=== PATIENT | female | born 1995 | race Caucasian/White ===

== ENCOUNTER → 2017-02-06 | Outpatient (REF) | payer OTHER | LOC: M SFHCLERA 20:46 | PROVIDERS: ATTEND Nurse Practitioner Family | DX: Z20.2 Contact with and (suspected) exposure to infections with a predominantly sexual mode of transmission (principal) ==

== ENCOUNTER 2021-08-30 14:41 | Inpatient (IN) | payer OTHER ==
[~2021-08-30] VITALS: Ht 157.5 cm; Wt 75.4 kg
[2021-08-30 15:06] VITALS: BP 158/87
[2021-08-30] MEDS ORDERED: TUMS500C PO (15:10)
[2021-08-30] MEDS ORDERED: ACET-907 PO (15:10)
[2021-08-30 15:16] VITALS: BP 141/83
[2021-08-30 15:26] VITALS: BP 137/80
[2021-08-30 15:57] LABS: APPEARANCE, URINE TURBID (CLEAR); BACTERIA, URINE AUTO 2+ (NEGATIVE); BILIRUBIN, URINE AUTO NEGATIVE (NEGATIVE); BLOOD, URINE BLOOD 1+ (NEGATIVE); COLOR, URINE YELLOW (YELLOW); GLUCOSE, URINE (UA) AUTO NEGATIVE (NEGATIVE); KETONE, URINE AUTO TRACE mg/dL (NEGATIVE); LEUKOCYTE ESTERASE, URINE AUTO 3+ (NEGATIVE); MUCUS, URINE SMALL (NEGATIVE); NITRITE, URINE AUTO POSITIVE (NEGATIVE); PROTEIN, URINE AUTO 2+ mg/dL (NEGATIVE); RBC, URINE AUTO 4 /HPF (0-3); SPECIFIC GRAVITY URINE AUTO 1.014 (1.002-1.035); SQUAMOUS EPITHELIAL CELL UR AU 4 /HPF (0-6); UROBILINOGEN, URINE AUTO 0.2 mg/dL (0.0-2.0); WBC, URINE AUTO TNTC /HPF (0-3)
[2021-08-30 16:20] LABS: ALT/SGPT 17 U/L (12-78); BILIRUBIN,TOTAL 0.3 MG/DL (0.2-1.0); CREATININE FOR GFR 0.54 MG/DL (0.55-1.30); GLOMERULAR FILTRATION RATE > 60.0 (>60); LDH LACTATE DEHYDROGENASE 218 U/L (84-246); URIC ACID 2.5 MG/DL (2.6-6.0)
[2021-08-30] MEDS: ACETAMINOPHEN 500 MG TAB PO PRN ×2 (16:41→22:42)
[2021-08-30] MEDS: NS 1,000 ML IV SCH ×2 (16:41→20:58)
[2021-08-30] MEDS ORDERED: NS 500 ML IV SCH (17:10)
[2021-08-30] MEDS ORDERED: NS 500 ML IV ONE (17:15)
[2021-08-30] MEDS: cefTRIAXone SOD 1 GM in D5W MINI-BAG PLUS 50 ML IV SCH (17:32)
[2021-08-30 18:17] VITALS: BP 128/59
[2021-08-30 20:37] VITALS: BP 132/74
[2021-08-31] VITALS: BP 117/59
[2021-08-31 04:00] VITALS: BP 103/55
[2021-08-31] MEDS: NS 1,000 ML IV SCH ×2 (04:46→12:03)
[2021-08-31] MEDS: ACETAMINOPHEN 500 MG TAB PO PRN ×2 (04:46→14:15)
[2021-08-31 08:38] VITALS: BP 110/57
[2021-08-31 08:51] LABS: HEMATOCRIT 30.9 % (36.0-47.0); HEMOGLOBIN 10.1 g/dl (12.0-15.5); MEAN CORPUSCULAR HEMOGLOBIN 28.6 pg (27.0-33.0); MEAN CORPUSCULAR HGB CONC 32.7 g/dl (32.0-36.5); MEAN CORPUSCULAR VOLUME 87.5 fl (80.0-96.0); PLATELET COUNT, AUTOMATED 254 10^3/uL (150-450); RED BLOOD COUNT 3.53 10^6/uL (4.00-5.40); WHITE BLOOD COUNT 11.1 10^3/uL (4.0-10.0)
[2021-08-31 09:17] LABS: BLOOD UREA NITROGEN 3 MG/DL (7-18); CARBON DIOXIDE LEVEL 24 MEQ/L (21-32); CHLORIDE LEVEL 109 MEQ/L (98-107); CREATININE FOR GFR 0.45 MG/DL (0.55-1.30); GLOMERULAR FILTRATION RATE > 60.0 (>60); GLUCOSE, FASTING 78 MG/DL (70-100); POTASSIUM SERUM 4.2 MEQ/L (3.5-5.1); SODIUM LEVEL 139 MEQ/L (136-145)
[2021-08-31 09:18] LABS: ALBUMIN 1.9 GM/DL (3.2-5.2); ALT/SGPT 16 U/L (12-78); BILIRUBIN,TOTAL 0.4 MG/DL (0.2-1.0); CALCIUM LEVEL 8.1 MG/DL (8.5-10.1); TOTAL PROTEIN 5.6 GM/DL (6.4-8.2)
[2021-08-31 12:10] VITALS: BP 122/69
[2021-08-31] MEDS: cefTRIAXone SOD 1 GM in D5W MINI-BAG PLUS 50 ML IV SCH (15:38)
[2021-08-31 16:39] VITALS: BP 124/69
== END 2021-08-31 18:12 | disposition home or self-care (01) | DRG 833 ==
LOC: M LDO 14:41 → M LDI 16:14 → M PED 21:11
PROVIDERS: ADMIT Registered Nurse; ATTEND Registered Nurse
DX: O23.02 Infections of kidney in pregnancy, second trimester (principal); Z3A.25 25 weeks gestation of pregnancy; B96.20 Unspecified Escherichia coli [E. coli] as the cause of diseases classified elsewhere; Z87.59 Personal history of other complications of pregnancy, childbirth and the puerperium; Z14.1 Cystic fibrosis carrier

== ENCOUNTER → 2021-10-20 | Outpatient (CLI) | payer OTHER ==
[~2021-10-20] MED LIST: ACET-907 PO; ACET1TAB55 PO; COLA100C5 PO; IBUP80TA PO; PRENCHW PO; TUMS500C PO; TYLE650T38 PO
== END ==
LOC: M RAD 12:28
PROVIDERS: ATTEND Obstetrics & Gynecology
DX: O36.4XX1 Maternal care for intrauterine death, fetus 1 (principal); Z3A.31 31 weeks gestation of pregnancy

== ENCOUNTER 2021-10-21 13:25 | Inpatient (IN) | payer OTHER ==
[~2021-10-21] VITALS: Ht 157.5 cm; Wt 80.2 kg
[2021-10-21] VITALS (12 sets, daily range): BP systolic 125–174; BP diastolic 83–111
[~2021-10-21 13:25] MED LIST changes: -ACET1TAB55 PO; -COLA100C5 PO; -IBUP80TA PO; -PRENCHW PO; -TYLE650T38 PO
[2021-10-21] MEDS ORDERED: METHYLERGONOVINE MALEATE 0.2 MG/ML VIAL (J2210) IM PRN (13:50)
[2021-10-21] MEDS ORDERED: LIDOCAINE 1% MDV 20ML VIAL INFIL PRN (13:50)
[2021-10-21] MEDS ORDERED: RHOGAM 300 MCG (1500 IU) INJ (J2790) IM SCH (13:50)
[2021-10-21] MEDS ORDERED: OXYTOCIN DRIP 30 UNITS in IV 1 EA IV PRN (13:50)
[2021-10-21 14:25] LABS: BASO % 0.5 % (0.0-1.0); EOS % 0.5 % (0.0-3.0); HEMATOCRIT 33.6 % (36.0-47.0); HEMOGLOBIN 10.6 g/dl (12.0-15.5); LYMPH % 23.2 % (24.0-44.0); MEAN CORPUSCULAR HEMOGLOBIN 25.8 pg (27.0-33.0); MEAN CORPUSCULAR HGB CONC 31.5 g/dl (32.0-36.5); MEAN CORPUSCULAR VOLUME 81.8 fl (80.0-96.0); MONO # 0.7 10^3/uL (0.0-0.8); NEUTROPHILS # 5.7 10^3/uL (1.5-8.5); NEUTROPHILS % 67.2 % (36.0-66.0); PLATELET COUNT, AUTOMATED 261 10^3/uL (150-450); RED BLOOD COUNT 4.11 10^6/uL (4.00-5.40); WHITE BLOOD COUNT 8.5 10^3/uL (4.0-10.0)
[2021-10-21 14:52] LABS: ALBUMIN 2.3 GM/DL (3.2-5.2); ALT/SGPT 12 U/L (12-78); BILIRUBIN,TOTAL 0.4 MG/DL (0.2-1.0); BLOOD UREA NITROGEN 8 MG/DL (7-18); CARBON DIOXIDE LEVEL 26 MEQ/L (21-32); CHLORIDE LEVEL 107 MEQ/L (98-107); GLOMERULAR FILTRATION RATE > 60.0 (>60); GLUCOSE, FASTING 91 MG/DL (70-100); POTASSIUM SERUM 4.1 MEQ/L (3.5-5.1); SODIUM LEVEL 137 MEQ/L (136-145); TOTAL PROTEIN 6.7 GM/DL (6.4-8.2)
[2021-10-21] MEDS: miSOPROStol 50MCG 1/2 TABLET SL SCH ×2 (16:53→21:17)
[2021-10-21 17:19] LABS: AMPHETAMINES URINE REFLEX NEGATIVE (NEGATIVE); BARBITURATES URINE REFLEX NEGATIVE (NEGATIVE); BENZODIAZEPINES URINE REFLEX NEGATIVE (NEGATIVE); CANNABINOIDS URINE REFLEX NEGATIVE (NEGATIVE); COCAINE METABOLITE URINE REFLE NEGATIVE (NEGATIVE); CREATININE,RANDOM URINE 52.3 MG/DL; METHADONE URINE REFLEX NEGATIVE (NEGATIVE); OPIATES URINE REFLEX NEGATIVE (NEGATIVE); PHENCYCLIDINE URINE REFLEX NEGATIVE (NEGATIVE); TOTAL PROTEIN,RANDOM URINE 33.8 MG/DL (0.0-12.0)
[2021-10-21] MEDS ORDERED: TYLE650T38 PO (18:33)
[2021-10-21] MEDS ORDERED: HOME MED LIST COMPLETE! XX SCH (18:35)
[2021-10-21] MEDS ORDERED: LR 1,000 ML IV SCH (19:00)
[2021-10-21] MEDS ORDERED: PROMETHAZINE INJ 25 MG/ML VIAL (J2550) IV PRN (21:50)
[2021-10-21] MEDS ORDERED: BUTORPHANOL 2 MG/ML INJ (J0595) IV PRN (21:50)
[2021-10-22] VITALS (14 sets, daily range): BP systolic 119–168; BP diastolic 59–95
[2021-10-22] MEDS: miSOPROStol 50MCG 1/2 TABLET SL SCH (01:24)
[2021-10-22] MEDS ORDERED: ACETAMINOPHEN 500 MG TAB PO ONE (01:30)
[2021-10-22] MEDS ORDERED: ONDANSETRON 4MG/2ML VIAL IV PRN (02:10)
[2021-10-22] MEDS ORDERED: FENTANYL 2MCG/ML ROPIVACAINE 0.2% IN 0.9% NACL 100ML IVBAG As Ordered ONE (06:02)
[2021-10-22] MEDS ORDERED: MEASLES,MUMPS,RUBELLA VACCINE INJ (MMR-II) (90707) SC SCH (06:45)
[2021-10-22] MEDS ORDERED: DIBUCAINE 1% OINTMENT 30GM TOP PRN (06:45)
[2021-10-22] MEDS ORDERED: RHOGAM 300 MCG (1500 IU) INJ (J2790) IM SCH (06:45)
[2021-10-22] MEDS ORDERED: PROMETHAZINE 25 MG TAB PO PRN (06:45)
[2021-10-22] MEDS ORDERED: ACETAMINOPHEN TAB 650MG DOSE (2X325MG) PO PRN (06:45)
[2021-10-22] MEDS ORDERED: DOCUSATE SODIUM 100MG CAPSULE PO PRN (06:45)
[2021-10-22] MEDS ORDERED: IBUPROFEN 600MG TAB PO PRN (06:45)
[2021-10-22] MEDS ORDERED: OXYTOCIN DRIP 30 UNITS in IV 1 EA IV SCH (06:45)
[2021-10-22] MEDS: IBUPROFEN 800 MG TAB PO PRN ×2 (07:51→19:20)
[2021-10-22] MEDS: PRENATAL VITAMINS CHEWABLE TABLET PO SCH (09:00)
[2021-10-22] MEDS: ACETAMINOPHEN 500 MG TAB PO PRN (19:20)
[2021-10-23 00:35] VITALS: BP 103/57
[2021-10-23] MEDS: ACETAMINOPHEN 500 MG TAB PO PRN (06:32)
[2021-10-23 09:10] VITALS: BP 128/93
[2021-10-23] MEDS: PRENATAL VITAMINS CHEWABLE TABLET PO SCH (09:15)
[2021-10-23] MEDS ORDERED: ACET1TAB55 PO (12:28)
[2021-10-23] MEDS ORDERED: IBUP80TA PO (12:28)
[2021-10-23] MEDS ORDERED: COLA100C5 PO (12:28)
[2021-10-23] MEDS ORDERED: PRENCHW PO (12:28)
[2021-10-25 10:20] LABS: DRVV SCREEN 41.5 SEC
[2021-10-25 10:23] LABS: PTT LUPUS TYPE ANTICOAG SCREEN 1.1 (0-1.2)
[2021-10-26 04:07] LABS: ANTI PARVO VIRUS LEVEL IGG 0.1 index (0.0-0.8); ANTI PARVO VIRUS LEVEL IgM 0.1 index (0.0-0.8); BETA-2 GLYCOPROTEIN I ABY IGA <9 (0-25); BETA-2 GLYCOPROTEIN I ABY IGG <9 (0-20); BETA-2 GLYCOPROTEIN I ABY IGM <9 (0-32); CARDIOLIPIN IGA ANTIBODY <9 APL U/mL (0-11); CARDIOLIPIN IGG ANTIBODY <9 GPL U/mL (0-14); CARDIOLIPIN IGM ANTIBODY 12 MPL U/mL (0-12); HERPES ZOSTER, VARICELLA IgG 420 index (Immune >165); HERPES ZOSTER, VARICELLA IgM <0.91 index (0.00-0.90)
== END 2021-10-23 12:45 | disposition home or self-care (01) | DRG 807 ==
LOC: M LDI 13:25
PROVIDERS: ADMIT Obstetrics & Gynecology; ATTEND Obstetrics & Gynecology
PROC: 3E0P7GC Introduction of Other Therapeutic Substance into Female Reproductive, Via Natural or Artificial Opening (ICD-10-PCS; 2021-10-21)
PROC: 10E0XZZ Delivery of Products of Conception, External Approach (ICD-10-PCS; principal; 2021-10-22)
DX: O36.4XX0 Maternal care for intrauterine death, not applicable or unspecified (principal); Z37.1 Single stillbirth; Z3A.32 32 weeks gestation of pregnancy; O14.94 Unspecified pre-eclampsia, complicating childbirth; O69.5XX0 Labor and delivery complicated by vascular lesion of cord, not applicable or unspecified